=== PATIENT | female | born 1980 | race Caucasian/White ===

== ENCOUNTER 2019-09-29 21:17 | Emergency (ER) | payer OTHER ==
[~2019-09-29] VITALS: Ht 170.2 cm; Wt 51.3 kg
[2019-09-29] MEDS ORDERED: PHENYTOIN50 MG PO (22:06)
[2019-09-29] MEDS ORDERED: ZOLPIDEM TART1.75 MG SUBLING (22:07)
[2019-09-29] MEDS ORDERED: SEROQUEL 100 M100 M1 PO (22:07)
[2019-09-29] MEDS ORDERED: OXTELLAR XR300 MG PO (22:08)
[2019-09-29] MEDS ORDERED: AMBIEN CR12.5 MG PO (22:08)
[2019-09-29] MEDS ORDERED: CLONAZEPAM 0.50.5 M1 PO (22:09)
[2019-09-29] MEDS ORDERED: DILAUDID 2 MG TA2 MG PO (22:10)
[2019-09-29 22:30] LABS: BASOPHILS 0.7 % (0.0-2.0); EOSINOPHILS 0.5 % (0.0-3.0); HEMATOCRIT 36.5 % (37.0-47.0); HEMOGLOBIN 12.2 gm/dL (12.0-15.0); LYMPHOCYTES 24.9 % (24.0-44.0); MCH 30.3 pg (26.0-34.0); MCHC 33.5 g/dL (28.0-37.0); MCV 90.3 fL (80.0-100.0); PLATELET COUNT 372 thou/uL (150-400); POLYS 65.9 % (36.0-66.0); RBC 4.04 mil/uL (4.20-5.00); WBC 10.7 thou/uL (4.0-11.0)
[2019-09-29 22:46] LABS: CALCIUM 8.7 mg/dL (8.5-10.1); CREATININE 0.5 mg/dL (0.6-1.0); POTASSIUM 3.9 mmol/L (3.5-5.1)
[2019-09-29 22:50] LABS: ALBUMIN 3.6 g/dL (3.4-5.0); TOTAL BILIRUBIN 0.1 mg/dL (0.2-1.0); TOTAL PROTEIN 7.8 g/dL (6.4-8.2)
[2019-09-30 02:17] VITALS: BP 115/73
[2019-09-30 02:31] LABS: URINE BILIRUBIN NEGATIVE (Negative); URINE BLOOD 2+ (Negative); URINE CLARITY CLEAR; URINE COLOR YELLOW; URINE GLUCOSE-RANDOM* NEGATIVE (Negative); URINE KETONES NEGATIVE (Negative); URINE LEUKOCYTES-REFLEX NEGATIVE (Negative); URINE NITRITE-REFLEX NEGATIVE (Negative); URINE PROTEIN (DIPSTICK) NEGATIVE (Negative); URINE UROBILINOGEN 0.2 E.U./dl (0.2-1.0)
[2019-09-30 02:42] LABS: BACTERIA-REFLEX 1-9 Few /HPF (None Seen); CASTS None Seen /LPF (None Seen); CRYSTALS None Seen /LPF (None Seen); MUCUS 0-3 Light strn/LPF (None Seen); SQUAMOUS 0-3 Few /LPF (0-3); URINE RBC 0-2 Rare /HPF (0-2); URINE WBC-REFLEX 0-5 Rare /HPF (0-5)
== END 2019-09-30 02:36 | disposition home or self-care (01) ==
LOC: ER 21:17
PROVIDERS: Emergency Medicine
DX: G50.0 Trigeminal neuralgia (principal); Z88.0 Allergy status to penicillin; Z88.2 Allergy status to sulfonamides; Z88.8 Allergy status to other drugs, medicaments and biological substances; Z79.899 Other long term (current) drug therapy